=== PATIENT | female | born 1960 | race Caucasian/White ===

== ENCOUNTER 2022-11-23 12:18 | Observation (INO) ==
--- NOTE | 2022-11-23 12:33 | Emergency Department Note ---
Impression & Plan Asthma with exacerbation, Acute dyspnea ED Provider Note NAME: ADAMA DAVID AGE: 62 SEX: F : 1960 ARRIVES VIA: Walk-In INFORMANT: Patient, ED PROVIDER(S): Juma Brown MD CHIEF COMPLAINT: Shortness of breath, MEDICAL DECISION MAKING: Patient presents due to concern for shortness of breath. IV was established blood was obtained patient was ordered IV fluids as well as DuoNeb treatment steroids magnesium. Patient's INR was to be checked based on the patient's prior history and does take INR on a regular basis. Patient typically is between 2 and 3. Patient's blood work shows a normal white count H&H and platelet count with normal kidney function electrolytes. The patient's INR is therapeutic at 2. Troponin is not elevated. Patient's Pro-Erik negative. The patient's bio fire is positive for parainfluenza 3 as well as enterorhino. Patient did have some mild improvement in symptoms but the patient did undergo an ambulatory pulse ox trial. The patient never desatted below 92% but the patient was fairly tachypneic and still feeling unwell. I did discuss additional treatment with the patient patient would prefer to stay in hospital with gentle things and reasonable given the patient has not gotten better with at home treatments. I did speak with the on-call hospitalist service 1 TERI Smith and the patient was admitted by Dr. Milan Prior /Outside records reviewed: None Differential diagnosis: Reactive airway disease, pneumonia, pneumothorax, COPD, CHF, infections, cardiac ischemia, pulmonary embolism, musculoskeletal, gastrointestinal, as well as other pathologies. Diagnostics, as interpreted by me: ECG: Normal sinus rhythm, rate of 77 normal intervals normal axis no ST elevations. No significant change for comparison September 16, 2018 Cardiac monitoring: An order was placed for continuous cardiac monitoring. The monitor shows a rate of 79 with sinus rhythm. Patient was placed on pulse oximetry Medical decision rules: none Imaging studies: See below I informally reviewed the patient's chest x-ray which showed no obvious pneumonia. HPI: Patient presents due to concern for worsening shortness of breath and was sent over after calling the on-call. The patient was recently seen after 2 days of symptoms on Thursday or Thursday and was started on prednisone and doxycycline. The patient states that she has been using the nebulizer treatments at home every 4 hours but without significant improvement in symptoms. The patient is having cough occasionally productive sputum. No recent falls or trauma. The patient does have a known prior history of clots and is on Coumadin. Patient also has a history of MARICARMEN. Patient [place] any leg swelling or calf pain. No recent surgeries procedures or hospitalizations. The patient states she is compliant with her medications. She has a known history of asthma but no history of COPD. The patient denies any smoking history. Patient did call the on-call and given her lack of improvement symptoms was referred here for further evaluation and treatment. PAST MEDICAL HISTORY: See Below PAST SURGICAL HISTORY: See Below SOCIAL HISTORY: See Below HOME MEDICATIONS: See Below ALLERGIES: See Below VITALS: See Below PHYSICAL EXAMINATION: GENERAL: Mildly ill but nontoxic in appearance EYE EXAM: Normal conjunctiva. PERRL, no anisocoria and EOM's grossly intact w/o pain. NECK: Supple, no nuchal rigidity, no adenopathy, non-tender. No signs of meningismus. FROM of the neck with good chin to chest and neck extension. No stridor. LUNGS: Coarse sounds throughout with associated inspiratory expiry wheezes. Normal chest wall mechanics. HEART: NSR, no MRG. ABDOMEN: Abdomen soft, non-tender, no masses, no rebound or guarding. BACK: No CVA TTP. SKIN: No rashes and no bruising. UPPER EXTREMITIES: Upper extremities are grossly normal. LOWER EXTREMITIES: Grossly normal, no edema. Negative Homans' sign bilaterally NEURO EXAM: A&O x3, cranial nerves II-XII grossly intact, normal speech, moves all 4 extremities. Past Med/Surg History Medical History (Updated 11/25/22 @ 14:11 by Juma Brown MD) Allergic rhinitis Asthma, severe persistent GERD (gastroesophageal reflux disease) HTN (hypertension) Pulmonary embolism Surgical History H/O gastric bypass History of pyloroplasty Family History Other Family history non-contributory Social History Smoking Status: Never smoker Hx Alcohol Use: Yes Hx Substance Use: No Preferred Language: Sami Communication Ability: Effective Decorating Instructor Required: No Beliefs That Will Affect Care: None marital status: Current Living Situation: Spouse current occupational status: employed Other Information That Helps Us Care for You: No Feels Safe at Home: Yes Safety Concerns: Feels Safe At This Time Assistive Devices: None Allergies Allergies Allergy/AdvReac Type Severity Reaction Status Date / Time Cephalosporins Allergy Severe ANAPHYLAXIS Verified 11/23/22 17:36 Quinolones Allergy Unknown UNKN Verified 11/23/22 17:36 Sulfa (Sulfonamide Allergy Unknown UNKN Verified 11/23/22 17:36 Antibiotics) Home Meds Home Medications Medication Instructions Recorded Confirmed albuterol 90 mcg/actuation aerosol 2 puff inhalation Q6 PRN Wheezing 09/10/15 11/23/22 inhaler ##0 albuterol sulfate 2.5 mg/3 mL 2.5 mg inhalation Q4 PRN Wheezing 09/10/15 11/23/22 (0.083 %) solution for nebulization #0 doses loratadine 10 mg tablet (Claritin) 10 mg PO DAILY #0 tabs 09/10/15 11/23/22 lorazepam 0.5 mg tablet 0.5 mg PO DAILY PRN Anxiety #0 tabs 09/10/15 11/23/22 montelukast 10 mg tablet 10 mg PO HS #0 tabs 09/10/15 11/23/22 multivitamin (Daily Multi-Vitamin 1 tab PO DAILY #0 tabs 09/10/15 11/23/22 tablet) omeprazole 20 mg capsule,delayed 20 mg PO DAILY PRN Acid Reflux #0 09/10/15 11/23/22 release caps lactobacillus combination no.4 3 1 cap PO DAILY ##0 09/11/15 11/23/22 billion cell capsule (Probiotic) budesonide-formoterol HFA 160 2 inh inhalation BID 11/23/22 11/23/22 mcg-4.5 mcg/actuation aerosol inhaler (Symbicort) doxycycline hyclate 100 mg capsule 100 mg PO BID 11/23/22 11/23/22 finasteride 5 mg tablet 5 mg PO DAILY 11/23/22 11/23/22 furosemide 40 mg tablet 40 mg PO DAILY 11/23/22 11/23/22 lisinopril 10 mg tablet 10 mg PO DAILY 11/23/22 11/23/22 minoxidil 2.5 mg tablet 2.5 mg PO DAILY 11/23/22 11/23/22 mometasone 50 mcg/actuation nasal 1 spray intranasal BID PRN Allergy 11/23/22 11/23/22 spray Symptoms prednisone 20 mg tablet 40 mg PO QAM 11/23/22 11/23/22 warfarin 2.5 mg tablet 2.5 mg PO 3XWK 11/23/22 11/23/22 warfarin 5 mg tablet 5 mg PO 4XWK 11/23/22 11/23/22 Previous Rx's Medication Instructions Recorded azithromycin 250 mg tablet 500 mg PO QAM 2 days #4 tabs 11/25/22 budesonide 0.5 mg/2 mL suspension 0.5 mg (2 mL) NEB BID #60 mL 11/25/22 for nebulization formoterol fumarate 20 mcg/2 mL 20 mcg (2 mL) NEB BID #60 mL 11/25/22 solution for nebulization (Perforomist) prednisone 10 mg tablet See Taper PO DAILY #20 tabs 11/25/22 Results & Data (ED) Vital Signs Vital Signs - 24 hr 11/23/22 12:24 Temperature 36.9 C Temperature Source Temporal Artery Scan Pulse Rate 85 Respiratory Rate 20 Respiratory Effort / Characteristics Non-Labored Spontaneous Respiratory Depth Normal Blood Pressure 150/87 H Blood Pressure Mean 108 Pulse Oximetry 96 Oxygen Delivery Method Room Air Sepsis Recent Fever Within 48 Hours No Sepsis New/Unexplained Change in Mental Status No Sepsis Action Taken by Nursing No Action Required Home Medications Current Medication List: was personally reviewed by me Laboratory Data Attestation: I reviewed the patient's lab results. 11/25/22 05:46 11/25/22 05:46 Lab Results 11/23/22 11/23/22 11/23/22 Range/Units 12:40 12:40 12:40 WBC 4.78 L (4.8-10.8) K/ul RBC 4.60 (4.20-5.40) M/uL Hgb 13.8 (12.0-16.0) g/dl Hct 39.3 (37.0-47.0) % MCV 85.4 (80.0-100.0) fL MCH 30.0 (25.0-34.0) pg MCHC 35.1 (32.0-36.0) g/dL RDW Std Deviation 39.4 (36.4-46.3) fL RDW Coeff of Jefferson 12.7 (11.5-14.5) % Plt Count 228 (130-400) K/uL MPV 9.6 (9.4-12.4) fL Immature Gran % (Auto) 0.6 % Neut % (Auto) 80.0 % Lymph % (Auto) 15.9 % [place] % (Auto) 3.1 % Eos % (Auto) 0.2 % Baso % (Auto) 0.2 % Neut # (Auto) 3.82 (1.40-6.50) K/uL Lymph # (Auto) 0.76 L (1.2-3.4) K/uL [place] # (Auto) 0.15 (0.11-0.59) K/uL Eos # (Auto) 0.01 (0-0.50) K/uL Baso # (Auto) 0.01 (0-0.2) K/uL Immature Gran # (Auto) 0.03 (0.01-0.20) K/uL PT 21.3 H (9.0-12.0) Seconds INR 2.0 H (0.9-1.1) Sodium 134 L (136-145) mmol/L Potassium 4.3 (3.5-5.1) mmol/L Chloride 102 (98-107) mmol/L Carbon Dioxide 25 (21-32) mmol/L Anion Gap 7 (3-11) BUN 8 (6-23) mg/dl Creatinine 0.66 (0.6-1.2) mg/dl Est Cr Clr Drug Dosing 103.1 ml/min Est GFR ( Amer) 109.7 ml/min Est GFR (Non-Af Amer) 94.7 ml/min BUN/Creatinine Ratio 12.1 (10-20) Glucose 130 H (70-99(Fasting)) mg/dl Calcium 9.5 (8.6-10.3) mg/dl Magnesium 1.9 (1.7-2.4) mg/dl Total Bilirubin 0.4 (0.2-1.0) mg/dl AST 22 (13-39) U/L ALT 29 (7-52) U/L Alkaline Phosphatase 56 (34-104) U/L Troponin I High Sens 3.3 (0-14) pg/ml Total Protein 7.4 (6.0-8.3) gm/dl Albumin 4.5 (3.4-5.0) gm/dl Globulin 2.9 (2.5-4.0) gm/dl Albumin/Globulin Ratio 1.6 (0.9-2) Procalcitonin (0-0.5) ng/ml Adenovirus (PCR) (NotDetected) B. pertussis DNA (PCR) (NotDetected) B.parapertussis DNA PCR (NotDetected) C. pneumoniae DNA (PCR) (NotDetected) Coronavirus OC43 (PCR) (NotDetected) Coronavirus HKU1 (PCR) (NotDetected) Coronavirus 229E (PCR) (NotDetected) SARS-CoV-2 (PCR) (NotDetected) Coronavirus NL63 (PCR) (NotDetected) Human Metapneumovir PCR (NotDetected) Influenza Type A (PCR) (NotDetected) Influenza Type B (PCR) (NotDetected) M. pneumoniae (PCR) (NotDetected) Parainfluenza 1 (PCR) (NotDetected) Parainfluenza 2 (PCR) (NotDetected) Parainfluenza 3 (PCR) (NotDetected) Parainfluenza 4 (PCR) (NotDetected) RSV (PCR) (NotDetected) Entero/Rhino (PCR) (NotDetected) 11/23/22 11/23/22 Range/Units 12:40 13:09 WBC (4.8-10.8) K/ul RBC (4.20-5.40) M/uL Hgb (12.0-16.0) g/dl Hct (37.0-47.0) % MCV (80.0-100.0) fL MCH (25.0-34.0) pg MCHC (32.0-36.0) g/dL RDW Std Deviation (36.4-46.3) fL RDW Coeff of Jefferson (11.5-14.5) % Plt Count (130-400) K/uL MPV (9.4-12.4) fL Immature Gran % (Auto) % Neut % (Auto) % Lymph % (Auto) % [place] % (Auto) % Eos % (Auto) % Baso % (Auto) % Neut # (Auto) (1.40-6.50) K/uL Lymph # (Auto) (1.2-3.4) K/uL [place] # (Auto) (0.11-0.59) K/uL Eos # (Auto) (0-0.50) K/uL Baso # (Auto) (0-0.2) K/uL Immature Gran # (Auto) (0.01-0.20) K/uL PT (9.0-12.0) Seconds INR (0.9-1.1) Sodium (136-145) mmol/L Potassium (3.5-5.1) mmol/L Chloride (98-107) mmol/L Carbon Dioxide (21-32) mmol/L Anion Gap (3-11) BUN (6-23) mg/dl Creatinine (0.6-1.2) mg/dl Est Cr Clr Drug Dosing ml/min Est GFR ( Amer) ml/min Est GFR (Non-Af Amer) ml/min BUN/Creatinine Ratio (10-20) Glucose (70-99(Fasting)) mg/dl Calcium (8.6-10.3) mg/dl Magnesium (1.7-2.4) mg/dl Total Bilirubin (0.2-1.0) mg/dl AST (13-39) U/L ALT (7-52) U/L Alkaline Phosphatase (34-104) U/L Troponin I High Sens (0-14) pg/ml Total Protein (6.0-8.3) gm/dl Albumin (3.4-5.0) gm/dl Globulin (2.5-4.0) gm/dl Albumin/Globulin Ratio (0.9-2) Procalcitonin < 0.05 (0-0.5) ng/ml Adenovirus (PCR) Not Detected (NotDetected) B. pertussis DNA (PCR) Not Detected (NotDetected) B.parapertussis DNA PCR Not Detected (NotDetected) C. pneumoniae DNA (PCR) Not Detected (NotDetected) Coronavirus OC43 (PCR) Not Detected (NotDetected) Coronavirus HKU1 (PCR) Not Detected (NotDetected) Coronavirus 229E (PCR) Not Detected (NotDetected) SARS-CoV-2 (PCR) Not Detected (NotDetected) Coronavirus NL63 (PCR) Not Detected (NotDetected) Human Metapneumovir PCR Not Detected (NotDetected) Influenza Type A (PCR) Not Detected (NotDetected) Influenza Type B (PCR) Not Detected (NotDetected) M. pneumoniae (PCR) Not Detected (NotDetected) Parainfluenza 1 (PCR) Not Detected (NotDetected) Parainfluenza 2 (PCR) Not Detected (NotDetected) Parainfluenza 3 (PCR) DETECTED A* (NotDetected) Parainfluenza 4 (PCR) Not Detected (NotDetected) RSV (PCR) Not Detected (NotDetected) Entero/Rhino (PCR) DETECTED A* (NotDetected) Administered Medications Albuterol (Albut/Ipratrop 3mg/0.5mg Neb 3 Ml Vial) 3 ml NEB Q4R RYANNE; Protocol Stop: 12/23/22 18:59 Last Admin: 11/25/22 11:17 Dose: Not Given Documented By: Admin: 11/25/22 07:27 Dose: 3 ml Documented By: Admin: 11/25/22 02:47 Dose: 3 ml Documented By: Admin: 11/24/22 22:34 Dose: 3 ml Documented By: Admin: 11/24/22 19:27 Dose: 3 ml Documented By: Admin: 11/24/22 15:44 Dose: 3 ml Documented By: Admin: 11/24/22 11:36 Dose: 3 ml Documented By: Admin: 11/24/22 07:21 Dose: 3 ml Documented By: Admin: 11/24/22 02:14 Dose: Not Given Documented By: Admin: 11/23/22 22:06 Dose: 3 ml Documented By: Admin: 11/23/22 19:49 Dose: 3 ml Documented By: TRISTON Azithromycin (Azithromycin 250 Mg Tab) 500 [facility] [place] Stop: 12/02/22 09:59 Last Admin: 11/25/22 10:21 Dose: 500 mg Documented By: GEORGIA Budesonide (Budesonide 0.5 Mg/2 Ml Vial (Pulmicort)) 0.5 mg NEB DAILY RYANNE Stop: 12/25/22 09:44 Last Admin: 11/25/22 11:16 Dose: 0.5 mg Documented By: HARRY Finasteride (Finasteride 5 Mg Tab) 5 mg PO DAILY RYANNE Stop: 12/24/22 08:59 Last Admin: 11/25/22 08:26 Dose: 5 mg Documented By: Admin: 11/24/22 08:25 Dose: 5 mg Documented By: MADI Formoterol Fumarate (Formoterol 20 Mcg/2 Ml Vial) 20 mcg NEB DAILY RYANNE Stop: 12/25/22 09:44 Last Admin: 11/25/22 11:16 Dose: 20 mcg Documented By: HARRY Furosemide (Furosemide 40 Mg Tab) 40 mg PO DAILY RYANNE Stop: 12/24/22 08:59 Last Admin: 11/25/22 08:26 Dose: 40 mg Documented By: Admin: 11/24/22 08:25 Dose: 40 mg Documented By: MADI Guaifenesin (Guaifenesin 600 Mg Tabcr) 1,200 mg PO BID RYANNE Stop: 12/23/22 20:59 Last Admin: 11/25/22 08:26 Dose: 1,200 mg Documented By: Admin: 11/24/22 20:13 Dose: 1,200 mg Documented By: Admin: 11/24/22 08:24 Dose: 1,200 mg Documented By: Admin: 11/23/22 20:30 Dose: 1,200 mg Documented By: KINJAL Lisinopril (Lisinopril 10 Mg Tab) 10 mg PO HS RYANNE Stop: 12/23/22 20:59 Last Admin: 11/24/22 20:13 Dose: 10 mg Documented By: Admin: 11/23/22 20:30 Dose: 10 mg Documented By: KINJAL Loratadine (Loratadine 10 Mg Tab) 10 mg PO DAILY RYANNE Stop: 12/24/22 08:59 Last Admin: 11/25/22 08:26 Dose: 10 mg Documented By: Admin: 11/24/22 08:25 Dose: 10 mg Documented By: MADI Lorazepam (Lorazepam 0.5 Mg Tab) 0.5 mg PO DAILY PRN PRN Reason: Anxiety Stop: 12/23/22 18:17 Last Admin: 11/24/22 20:16 Dose: 0.5 mg Documented By: Admin: 11/23/22 21:19 Dose: 0.5 mg Documented By: KINJAL Minoxidil (Minoxidil 2.5 Mg Tab) 2.5 mg PO DAILY [facility] Stop: 12/24/22 08:59 Last Admin: 11/25/22 10:12 Dose: 2.5 mg Documented By: Admin: 11/24/22 08:25 Dose: 2.5 mg Documented By: MADI Montelukast Sodium (Montelukast Sodium 10 Mg Tablet) 10 mg PO HS [facility] Stop: 12/23/22 20:59 Last Admin: 11/24/22 20:13 Dose: 10 mg Documented By: Admin: 11/23/22 20:30 Dose: 10 mg Documented By: KINJAL Prednisone (Prednisone 20 Mg Tab) 40 mg PO DAILY [facility] Stop: 12/24/22 08:59 Last Admin: 11/25/22 08:26 Dose: 40 mg Documented By: Admin: 11/24/22 08:25 Dose: 40 mg Documented By: MADI Warfarin Sodium (Warfarin Sod 2.5 Mg Tab) 2.5 mg PO [email or web address] [facility] Stop: 12/24/22 15:59 Last Admin: 11/24/22 15:27 Dose: 2.5 mg Documented By: MADI Warfarin Sodium (Warfarin Sod 5 Mg Tab) 5 mg PO [email or web address] [facility] Stop: 12/23/22 18:44 Last Admin: 11/23/22 20:30 Dose: 5 mg Documented By: KINJAL Discontinued Medications Albuterol (Albut/Ipratrop 3mg/0.5mg Neb 3 Ml Vial) 12 ml INH ONE STA Stop: 11/23/22 12:50 Last Admin: 11/23/22 13:21 Dose: 12 ml Documented By: CHHAYA Albuterol (Albut/Ipratrop 3mg/0.5mg Neb 3 Ml Vial) 12 ml NEB ONE ONE; Protocol Stop: 11/23/22 15:13 Last Admin: 11/23/22 15:33 Dose: 12 ml Documented By: [id number] Sodium Chloride (Nss 1000ml) 1,000 mls @ 999 mls/hr IV .Q1H1M RYANNE Stop: 11/23/22 14:00 Last Infusion: 11/23/22 14:08 Dose: 0 mls/hr Documented By: Admin: 11/23/22 13:04 Dose: 999 mls/hr Documented By: CHESTER Magnesium Sulfate/Dextrose (Magnesium Sulfate / D5w) 1 gm in 100 mls @ 100 mls /hr IV Q1H RYANNE Stop: 11/23/22 14:59 Last Infusion: 11/23/22 15:13 Dose: 0 mls/hr Documented By: Admin: 11/23/22 14:07 Dose: 100 mls/hr Documented By: Infusion: 11/23/22 14:03 Dose: 100 mls/hr Documented By: Admin: 11/23/22 13:03 Dose: 100 mls/hr Documented By: CHESTER Sodium Chloride (Nss 1000ml) 1,000 mls @ 999 mls/hr IV .Q1H1M ONE Stop: 11/23/22 16:12 Last Infusion: 11/23/22 18:31 Dose: 0 mls/hr Documented By: Admin: 11/23/22 15:17 Dose: 999 mls/hr Documented By: THOMAS Ioversol (Optiray 320 500ml) 115 ml IV ONCE ONE Stop: 11/24/22 14:08 Last Admin: 11/24/22 14:08 Dose: 115 ml Documented By: FIDEL Methylprednisolone (Methylprednisolone 125 Mg/2 Ml Vial) 125 mg IV NOW STA Stop: 11/23/22 12:50 Last Admin: 11/23/22 13:03 Dose: 125 mg Documented By: CHESTER Imaging Data Radiologist's Impression: Chest X-Ray 11/23/22 12:49 XR chest 1V portable CLINICAL HISTORY: Dyspnea TECHNIQUE: Single frontal radiograph of the chest was obtained. Comparison: Comparison is made to chest radiograph 09/26/2018 FINDINGS: No lines and tubes are seen. Calcified aortic knob is seen. The lungs are clear. No evidence of pleural effusion or pneumothorax. IMPRESSION: No acute abnormalities and in particular no radiographic evidence of pneumonia. ACT 112: Negative or not required by law. Electronically signed by: Lan Paredes M.D. 11/23/2022 1:01 PM Discharge Plan Visit Data Chief Complaint: Shortness of Breath/Dyspnea Stated Complaint: SHORTNESS OF BREATH ED Provider: Juma Brown Discharge Problem: Asthma with exacerbation, Acute dyspnea Patient Disposition: Admitted As Inpatient Discharge Instructions Interventions: ED Discharge Assessment Last Done: 11/23/22 18:10
[2022-11-23] MEDS ORDERED: methylPREDNISolone 125 MG/2 ML VIAL IV STA (12:49)
[2022-11-23] MEDS ORDERED: ALBUT/IPRATROP 3MG/0.5MG NEB 3 ML VIAL INH STA (12:49)
[2022-11-23] MEDS ORDERED: SODIUM CHLORIDE 0.9% 1000ML 1,000 ML IV SCH (13:00)
[2022-11-23] MEDS: MAGNESIUM SULFATE / D5W 1 GM/100 ML BAG IV SCH ×2 (13:03→14:07)
--- NOTE | 2022-11-23 13:03 | XRay Report ---
XR chest 1V portable CLINICAL HISTORY: Dyspnea TECHNIQUE: Single frontal radiograph of the chest was obtained. Comparison: Comparison is made to chest radiograph 09/26/2018 FINDINGS: No lines and tubes are seen. Calcified aortic knob is seen. The lungs are clear. No evidence of pleur al effusion or pneumothorax. IMPRESSION: No acute abnormalities and in particular no radiographic evidence of pneumonia. ACT 112: Negative or not required by law. Electronically signed by: Lan Paredes M.D. 11/23/2022 1:01 PM
[2022-11-23 13:06] LABS: Basophils # (auto) 0.01 K/uL (0-0.2); Basophils % (auto) 0.2 %; Eosinophils # (auto) 0.01 K/uL (0-0.50); Eosinophils % (auto) 0.2 %; Hematocrit (blood only) 39.3 % (37.0-47.0); Hemoglobin 13.8 g/dl (12.0-16.0); Immature Granulocytes # (auto) 0.03 K/uL (0.01-0.20); Immature Granulocytes % (auto) 0.6 %; Lymphocytes # (auto) 0.76 K/uL (1.2-3.4); Lymphocytes % (auto) 15.9 %; Mean Corpuscular Hgb Conc 35.1 g/dL (32.0-36.0); Mean Corpuscular Volume 85.4 fL (80.0-100.0); Mean Platelet Volume 9.6 fL (9.4-12.4); Monocytes # (auto) 0.15 K/uL (0.11-0.59); Monocytes % (auto) 3.1 %; Neutrophils # (auto) 3.82 K/uL (1.40-6.50); Platelet Count 228 K/uL (130-400); RDW Coefficient of Variation 12.7 % (11.5-14.5); RDW Standard Deviation 39.4 fL (36.4-46.3); White Blood Count 4.78 K/ul (4.8-10.8)
[2022-11-23 13:11] LABS: Albumin Globulin Ratio 1.6 (0.9-2); Albumin Level 4.5 gm/dl (3.4-5.0); BUN Creatinine Ratio 12.1 (10-20); Bilirubin,Total 0.4 mg/dl (0.2-1.0); Calcium 9.5 mg/dl (8.6-10.3); Creatinine Clr Calc Pharmacy 103.1 ml/min; Est GFR (African American) 109.7 ml/min; Est GFR (Non-African American) 94.7 ml/min; Globulin 2.9 gm/dl (2.5-4.0); Magnesium 1.9 mg/dl (1.7-2.4); Potassium 4.3 mmol/L (3.5-5.1); Total Protein 7.4 gm/dl (6.0-8.3)
[2022-11-23 13:17] LABS: Troponin I High Sensitivity 3.3 pg/ml (0-14)
[2022-11-23 13:28] LABS: Prothrombin Time 21.3 Seconds (9.0-12.0)
[2022-11-23 14:10] LABS: Adenovirus PCR Not Detected (NotDetected); Bordetella parapertussis PCR Not Detected (NotDetected); Bordetella pertussis PCR Not Detected (NotDetected); Chlamydia pneumoniae PCR Not Detected (NotDetected); Coronavirus 229E PCR Not Detected (NotDetected); Coronavirus CoV-2 (COVID19)PCR Not Detected (NotDetected); Coronavirus HKU1 PCR Not Detected (NotDetected); Coronavirus NL63 PCR Not Detected (NotDetected); Coronavirus OC43PCR Not Detected (NotDetected); Human Metapneumovirus PCR Not Detected (NotDetected); Influenza A PCR Not Detected (NotDetected); Influenza B PCR Not Detected (NotDetected); Mycoplasma pneumoniae PCR Not Detected (NotDetected); Parainfluenza Virus 1 PCR Not Detected (NotDetected); Parainfluenza Virus 2 PCR Not Detected (NotDetected); Parainfluenza Virus 4 PCR Not Detected (NotDetected); Respiratory Syncytial VirusPCR Not Detected (NotDetected)
[2022-11-23 14:26] LABS: Rhinovirus/Enterovirus PCR DETECTED (NotDetected)
[2022-11-23 14:27] LABS: Parainfluenza Virus 3 PCR DETECTED (NotDetected)
[2022-11-23] MEDS ORDERED: SODIUM CHLORIDE 0.9% 1000ML 1,000 ML IV ONE (15:12)
[2022-11-23] MEDS ORDERED: ALBUT/IPRATROP 3MG/0.5MG NEB 3 ML VIAL NEB ONE (15:12)
[2022-11-23] MEDS ORDERED: ACETAMINOPHEN 325 MG TAB PO PRN (15:57)
[2022-11-23] MEDS ORDERED: POLYETHYLENE (MIRALAX) 17 GM PACK PO PRN (15:57)
[2022-11-23] MEDS ORDERED: ALUMINUM/MAGNESIUM SUSP 30 ML UDC PO PRN (15:57)
--- NOTE | 2022-11-23 17:20 | History & Physical Report ---
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 SOB/Dyspnea/Rhinovirus/Enterovirus/Parainfluenza viral Illness/Asthma Exacerbation Pt notes she is dyspneic No increased oxygen requirement, no noted episodes of hypoxia at this time Respiratory panel positive for rhinovirus/enterovirus and parainfluenza virus Chest xray with no acute changes, CTA PE protocol ordered given this pt's Hx of PE One dose of IV Solumedrol 125mg in the ED with a duoneb treatment, she failed ambulatory trial there becoming tachypneic. Duoneb treatments q4h scheduled, PO prednisone 40mg daily. Continue inhalers She follows with Allergy medicine outpatient- they noted at her last outpt visit in [facility], that if she continues with frequent exacerbations will consider Spiriva or a biologic. Chronic conditions (per [facility] chart review): Moderate persistent asthma/Allergic rhinitis- follows with Allergy Medicine as above. Continue home inhalers, Singulair, Claritin. Hold prn Nasacort. Hx of PE-continue home warfarin. She takes 2.5mg MWF and 5mg on the other days. Follows with the anticoagulation clinic, goal INR between 2-3. INR on admission 2.0. AM lab pending. 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 Follows with Dermatology. CODE STATUS: Full code Diet: Regular/HH DVT prophylaxis: on home warfarin Dispo: Med/Surg, Obs status History of Present Illness Chief Complaint: SOB/Dyspnea Primary Care Provider: Tova Torres MD Pt is a 62yoF with PMHx of Hx of PE (currently anticoagulated with warfarin), Asthma/Seasonal allergies (following with Allergy Medicine), MARICARMEN on cpap, HTN, GERD, HLD, Anxiety, Insomnia, Edema who presents with SOB/Dyspnea. States that she started with a fever about a week ago that progressed to trouble breathing. She and her were at a but denied sick contacts there. Saw her pcp on the , was prescribed doxycycline and PO prednisone. States she typically needs a prednisone "shot" but did not get that this time. The medications she was prescribed did not help her breathing and so she came in to be evaluated further. Notes a hx of severe asthma. Denies chest pain but does note chest tightness. Allergies Allergy/AdvReac Type Severity Reaction Status Date / Time Cephalosporins Allergy Severe ANAPHYLAXIS Verified 11/23/22 17:36 Quinolones Allergy Unknown UNKN Verified 11/23/22 17:36 Sulfa (Sulfonamide Allergy Unknown UNKN Verified 11/23/22 17:36 Antibiotics) Home Medications Medication Instructions Recorded Confirmed Type albuterol 90 mcg/actuation aerosol 2 puff inhalation Q6 PRN Wheezing 09/10/15 11/23/22 History inhaler ##0 albuterol sulfate 2.5 mg/3 mL 2.5 mg inhalation Q4 PRN Wheezing 09/10/15 11/23/22 History (0.083 %) solution for nebulization #0 doses loratadine 10 mg tablet (Claritin) 10 mg PO DAILY #0 tabs 09/10/15 11/23/22 History lorazepam 0.5 mg tablet 0.5 mg PO DAILY PRN Anxiety #0 tabs 09/10/15 11/23/22 History montelukast 10 mg tablet 10 mg PO HS #0 tabs 09/10/15 11/23/22 History multivitamin (Daily Multi-Vitamin 1 tab PO DAILY #0 tabs 09/10/15 11/23/22 History tablet) omeprazole 20 mg capsule,delayed 20 mg PO DAILY PRN Acid Reflux #0 09/10/15 11/23/22 History release caps lactobacillus combination no.4 3 1 cap PO DAILY ##0 09/11/15 11/23/22 History billion cell capsule (Probiotic) budesonide-formoterol HFA 160 2 inh inhalation BID 11/23/22 11/23/22 History mcg-4.5 mcg/actuation aerosol inhaler (Symbicort) doxycycline hyclate 100 mg capsule 100 mg PO BID 11/23/22 11/23/22 History finasteride 5 mg tablet 5 mg PO DAILY 11/23/22 11/23/22 History furosemide 40 mg tablet 40 mg PO DAILY 11/23/22 11/23/22 History lisinopril 10 mg tablet 10 mg PO DAILY 11/23/22 11/23/22 History minoxidil 2.5 mg tablet 2.5 mg PO DAILY 11/23/22 11/23/22 History mometasone 50 mcg/actuation nasal 1 spray intranasal BID PRN Allergy 11/23/22 11/23/22 History spray Symptoms prednisone 20 mg tablet 40 mg PO QAM 11/23/22 11/23/22 History warfarin 2.5 mg tablet 2.5 mg PO 3XWK 11/23/22 11/23/22 History warfarin 5 mg tablet 5 mg PO 4XWK 11/23/22 11/23/22 History Past Med/Surg History Medical History (Updated 11/23/22 @ 18:19 by Anju Milan MD) Allergic rhinitis Asthma, severe persistent GERD (gastroesophageal reflux disease) HTN (hypertension) Pulmonary embolism Surgical History H/O gastric bypass History of pyloroplasty Family History Other Family history non-contributory Social History Smoking Status: Never smoker Preferred Language: Hungarian marital status: Current Living Situation: Spouse current occupational status: employed Feels Safe at Home: Yes Review of Systems Review of Systems: All systems reviewed & are unremarkable except as noted in HPI & below Physical Exam Physical Exam: General: Alert, oriented. No acute distress Skin: No noted rashes or bruises Psych: Appropriate mood and affect Neuro: No gross deficits HEENT: NC/AT Chest: Nontender to palpation. CV: RRR, Normal s1, s2. No murmurs appreciated Resp: Breath sounds rhoncorous bilaterally, no increased effort of breathing. No crackles/rhonchi/rales. Abdomen: Soft, nontender, nondistended. No guarding. No organomegaly appreciated. Extremities: No edema in lower extremities bilaterally. Results & Data Results & Data Vital Signs (Past 12 Hours) Vital Signs Temp Pulse Pulse Resp BP BP Pulse Ox 11/23/22 15:33 97 H 19 94 11/23/22 14:13 90 18 154/75 H 98 11/23/22 13:22 73 16 95 11/23/22 13:08 96 11/23/22 13:08 95 11/23/22 13:08 73 18 138/76 95 11/23/22 12:24 36.9 C 85 20 150/87 H 96 O2 Del Method FiO2 11/23/22 15:33 Room Air 21 11/23/22 14:13 Nebulizer 11/23/22 13:22 Room Air 11/23/22 13:08 Room Air 11/23/22 13:08 Room Air 11/23/22 13:08 Room Air 11/23/22 12:24 Room Air Code Status & VTE Plan VTE Prophylaxis Plan VTE Prophylaxis will be ordered: Yes (9) Asthma exacerbation Asthma persistence: unspecified Asthma severity: mild Qualified Code(s): J45.901 - Unspecified asthma with (acute) exacerbation
[2022-11-23] MEDS ORDERED: PANTOprazole 40 MG TAB PO PRN (18:26)
[2022-11-23] MEDS ORDERED: ALBUTEROL HFA 8 GM INHALER INH PRN (18:27)
[2022-11-23] MEDS: ALBUT/IPRATROP 3MG/0.5MG NEB 3 ML VIAL NEB SCH ×2 (19:49→22:06)
[2022-11-23] MEDS: guaiFENesin 600 MG TABCR PO SCH (20:30)
[2022-11-23] MEDS: WARFARIN SOD 5 MG TAB PO SCH (20:30)
[2022-11-23] MEDS: MONTELUKAST SODIUM 10 MG TABLET PO SCH (20:30)
[2022-11-23] MEDS: lisinopril 10 MG TAB PO SCH (20:30)
[2022-11-23] MEDS ORDERED: Nursing to Pharmacy Communication SCH (20:30)
[2022-11-23] MEDS: LORazepam 0.5 MG TAB PO PRN (21:19)
[2022-11-24] MEDS: ALBUT/IPRATROP 3MG/0.5MG NEB 3 ML VIAL NEB SCH ×6 (02:14→22:34)
[2022-11-24 08:12] LABS: Basophils # (auto) 0.01 K/uL (0-0.2); Basophils % (auto) 0.1 %; Hematocrit (blood only) 37.5 % (37.0-47.0); Hemoglobin 12.9 g/dl (12.0-16.0); Immature Granulocytes # (auto) 0.04 K/uL (0.01-0.20); Immature Granulocytes % (auto) 0.4 %; Lymphocytes # (auto) 1.76 K/uL (1.2-3.4); Lymphocytes % (auto) 16.9 %; Mean Corpuscular Hemoglobin 29.9 pg (25.0-34.0); Mean Corpuscular Hgb Conc 34.4 g/dL (32.0-36.0); Mean Corpuscular Volume 86.8 fL (80.0-100.0); Mean Platelet Volume 9.5 fL (9.4-12.4); Monocytes # (auto) 0.78 K/uL (0.11-0.59); Monocytes % (auto) 7.5 %; Neutrophils % (auto) 75.1 %; Platelet Count 220 K/uL (130-400); RDW Coefficient of Variation 12.7 % (11.5-14.5); RDW Standard Deviation 40.8 fL (36.4-46.3); Red Blood Count 4.32 M/uL (4.20-5.40); White Blood Count 10.39 K/ul (4.8-10.8)
[2022-11-24 08:22] LABS: Prothrombin Time 21.4 Seconds (9.0-12.0)
[2022-11-24] MEDS: guaiFENesin 600 MG TABCR PO SCH ×2 (08:24→20:13)
[2022-11-24] MEDS: FUROSEMIDE 40 MG TAB PO SCH (08:25)
[2022-11-24] MEDS: predniSONE 20 MG TAB PO SCH (08:25)
[2022-11-24] MEDS: FINASTERIDE 5 MG TAB PO SCH (08:25)
[2022-11-24] MEDS: minoxidiL 2.5 MG TAB PO SCH (08:25)
[2022-11-24] MEDS: LORATADINE 10 MG TAB PO SCH (08:25)
[2022-11-24 08:46] LABS: BUN Creatinine Ratio 17.2 (10-20); Calcium 8.9 mg/dl (8.6-10.3); Creatinine Clr Calc Pharmacy 106.2 ml/min; Est GFR (African American) 110.8 ml/min; Est GFR (Non-African American) 95.6 ml/min; Potassium 3.9 mmol/L (3.5-5.1)
[2022-11-24] MEDS ORDERED: lisinopril 10 MG TAB PO SCH (09:00)
[2022-11-24] MEDS ORDERED: FLUTICASONE/VILANTEROL 200/25MCG 14 PUFFS/INHALER INH SCH (09:00)
--- NOTE | 2022-11-24 11:30 | Electrocardiogram Report ---
Test Reason : Blood Pressure : / mmHG Vent. Rate : 077 BPM Atrial Rate : 077 BPM P-R Int : 130 ms QRS Dur : 102 ms QT Int : 390 ms P-R-T Axes : 050 058 063 degrees QTc Int : 441 ms Poor data quality, interpretation may be adversely affected Normal sinus rhythm Septal infarct (cited on or before 23-NOV-2022) Abnormal ECG When compared with ECG of 26-SEP-2018 08:42, No significant change was found Confirmed by Luis Peraza ([id number]) on 11/24/2022 11:29:53 AM Referred By: Confirmed By:Luis Peraza
[2022-11-24] MEDS ORDERED: OPTIRAY 320 500ml IV ONE (14:07)
--- NOTE | 2022-11-24 14:46 | CT Scan Report ---
CHEST CTA for PULMONARY ARTERIES CT DOSE: 794.73 mGy.cm HISTORY: Shortness of breath. TECHNIQUE: Multiaxial CT images of the chest were performed following the intravenous administration of contrast to evaluate the pulmonary arteries. Maximal intensity projection images were also obtaine d. A dose lowering technique was utilized adhering to the principles of ALARA. COMPARISON STUDY: Chest CTA 09/14/2015. FINDINGS: Normal caliber thoracic aorta with no evidence for a dissection. No filling defects within the pulmonary arteries to suggest a pulmonary embolus. Limited views of the upper abdomen demonstrate a normal liver, spleen, and adrenal glands. Normal esophagus. The thyroid gland enhances normally. N o pleural or pericardial effusions. The heart is normal in size. No mediastinal or hilar lymphadenopa thy. No acute fractures identified. No pneumothorax. The central airways are patent. There are a few partially opacified bilateral lower lobe distal bronchi. There are bibasilar lower lobe linear densit ies which favor subsegmental atelectasis. A low-grade pneumonitis could also have a similar appearanc e. The upper lung zones remain clear. IMPRESSION: 1. No evidence for a pulmonary embolus. 2. Partial opacification of the distal bilateral lower lobe bronchi with a few lower lobe linear dens ities. These favor subsegmental atelectasis. A low-grade pneumonitis could also a similar appearance in the appropriate clinical setting. ACT 112: Negative or not required by law. Electronically signed by: Aly Rivas M.D. 11/24/2022 2:45 PM
--- NOTE | 2022-11-24 15:34 | Hospitalist Progress Note ---
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 SOB/Dyspnea/Rhinovirus/Enterovirus/Parainfluenza viral Illness/ Asthma Exacerbation Patient presents with increasing shortness of breath No increased oxygen requirement, no noted episodes of hypoxia at this time Respiratory panel positive for rhinovirus/enterovirus and parainfluenza virus Chest xray reviewed personally; with no acute changes, CTA PE reviewed; no PE. Duoneb treatments q4h scheduled, PO prednisone 40mg daily. Continue inhalers Chronic conditions (per [facility] chart review): Moderate persistent asthma/Allergic rhinitis- Continue home inhalers, Singulair, Claritin. Hold prn Nasacort. Hx of PE-continue home warfarin. She takes 2.5mg MWF and 5mg on the other days. Follows with the anticoagulation clinic, goal INR between 2-3. 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 Follows with Dermatology. CODE STATUS: Full code Diet: Regular/HH DVT prophylaxis: on home warfarin Dispo: Med/Surg, Obs status. Continues to be hospitalized due to asthma exacerbation requiring inpatient observation for possible decompensation. Please note the above document was generated using voice recognition software. It may contain grammatical, syntax or spelling errors. Any formal questions or concerns about the content, text or information contained within the body of this dictation should be directly addressed to the provider for clarification Admission and Anticipated Discharge Date Admission Date: November 23, 2022 Subjective Patient seen and examined at bedside. She reports that her shortness of breath has improved compared to admission. Review of Systems Review of Systems: All systems reviewed & are unremarkable except as noted in Subjective Physical Exam Physical Exam: Constitutional: WD/WN, vitals as above, NAD, sitting up in bed, pleasant, conversing easily Respiratory: Bilateral wheeze present with prolonged expiration. Cardiovascular: RRR, no murmur, no edema Vessels: no JVD or carotid bruit Chest: normal inspection of chest Abdomen: normal bowel sounds, soft, nontender, no hepatosplenomegaly Musculoskeletal: no cyanosis or clubbing, extremities motor strength 5/5 Skin: no rashes, warm and dry normal turgor Neurologic: PERRL, EOMI, accommodation nl, no face palsy, no dysarthria CN's II- XI intact bilaterally and moves all extremities Psychiatric: A+Ox3, euthymic affect Lymphatic: no cervical or axillary lymphadenopathy : deferred Results & Data Results & Data Vital Signs (Past 12 Hours) Vital Signs Temp Pulse Resp BP Pulse Ox O2 Del Method 11/24/22 11:36 85 16 97 Room Air 11/24/22 07:45 Room Air 11/24/22 07:53 36.8 C 87 16 135/69 96 Room Air 11/24/22 07:22 86 18 97 Room Air Laboratory Results Laboratory Results WBC 10.39 K/ul (4.8-10.8) 11/24/22 07:40 RBC 4.32 M/uL (4.20-5.40) 11/24/22 07:40 Hgb 12.9 g/dl (12.0-16.0) 11/24/22 07:40 Hct 37.5 % (37.0-47.0) 11/24/22 07:40 MCV 86.8 fL (80.0-100.0) 11/24/22 07:40 MCH 29.9 pg (25.0-34.0) 11/24/22 07:40 MCHC 34.4 g/dL (32.0-36.0) 11/24/22 07:40 RDW Std Deviation 40.8 fL (36.4-46.3) 11/24/22 07:40 RDW Coeff of [place] 12.7 % (11.5-14.5) 11/24/22 07:40 Plt Count 220 K/uL (130-400) 11/24/22 07:40 MPV 9.5 fL (9.4-12.4) 11/24/22 07:40 Immature Gran % (Auto) 0.4 % 11/24/22 07:40 Neut % (Auto) 75.1 % 11/24/22 07:40 Lymph % (Auto) 16.9 % 11/24/22 07:40 Bertie % (Auto) 7.5 % 11/24/22 07:40 Eos % (Auto) 0.0 % 11/24/22 07:40 Baso % (Auto) 0.1 % 11/24/22 07:40 Neut # (Auto) 7.80 K/uL (1.40-6.50) H 11/24/22 07:40 Lymph # (Auto) 1.76 K/uL (1.2-3.4) 11/24/22 07:40 Bertie # (Auto) 0.78 K/uL (0.11-0.59) H 11/24/22 07:40 Eos # (Auto) 0.00 K/uL (0-0.50) 11/24/22 07:40 Baso # (Auto) 0.01 K/uL (0-0.2) 11/24/22 07:40 Immature Gran # (Auto) 0.04 K/uL (0.01-0.20) 11/24/22 07:40 PT 21.4 Seconds (9.0-12.0) H 11/24/22 07:40 INR 2.0 (0.9-1.1) H 11/24/22 07:40 Sodium 136 mmol/L (136-145) 11/24/22 07:40 Potassium 3.9 mmol/L (3.5-5.1) 11/24/22 07:40 Chloride 104 mmol/L (98-107) 11/24/22 07:40 Carbon Dioxide 26 mmol/L (21-32) 11/24/22 07:40 Anion Gap 6 (3-11) 11/24/22 07:40 BUN 11 mg/dl (6-23) 11/24/22 07:40 Creatinine 0.64 mg/dl (0.6-1.2) 11/24/22 07:40 Est Cr Clr Drug Dosing 106.2 ml/min 11/24/22 07:40 Est GFR ( Amer) 110.8 ml/min 11/24/22 07:40 Est GFR (Non-Af Amer) 95.6 ml/min 11/24/22 07:40 BUN/Creatinine Ratio 17.2 (10-20) 11/24/22 07:40 Glucose 101 mg/dl (70-99(Fasting)) H 11/24/22 07:40 Calcium 8.9 mg/dl (8.6-10.3) 11/24/22 07:40 Magnesium 1.9 mg/dl (1.7-2.4) 11/23/22 12:40 Total Bilirubin 0.4 mg/dl (0.2-1.0) 11/23/22 12:40 AST 22 U/L (13-39) 11/23/22 12:40 ALT 29 U/L (7-52) 11/23/22 12:40 Alkaline Phosphatase 56 U/L (34-104) 11/23/22 12:40 Troponin I High Sens 3.3 pg/ml (0-14) 11/23/22 12:40 Total Protein 7.4 gm/dl (6.0-8.3) 11/23/22 12:40 Albumin 4.5 gm/dl (3.4-5.0) 11/23/22 12:40 Globulin 2.9 gm/dl (2.5-4.0) 11/23/22 12:40 Albumin/Globulin Ratio 1.6 (0.9-2) 11/23/22 12:40 Procalcitonin < 0.05 ng/ml (0-0.5) 11/23/22 12:40 Adenovirus (PCR) Not Detected (NotDetected) 11/23/22 13:09 B. pertussis DNA (PCR) Not Detected (NotDetected) 11/23/22 13:09 B.parapertussis DNA PCR Not Detected (NotDetected) 11/23/22 13:09 C. pneumoniae DNA (PCR) Not Detected (NotDetected) 11/23/22 13:09 Coronavirus OC43 (PCR) Not Detected (NotDetected) 11/23/22 13:09 Coronavirus HKU1 (PCR) Not Detected (NotDetected) 11/23/22 13:09 Coronavirus 229E (PCR) Not Detected (NotDetected) 11/23/22 13:09 SARS-CoV-2 (PCR) Not Detected (NotDetected) 11/23/22 13:09 Coronavirus NL63 (PCR) Not Detected (NotDetected) 11/23/22 13:09 Human Metapneumovir PCR Not Detected (NotDetected) 11/23/22 13:09 Influenza Type A (PCR) Not Detected (NotDetected) 11/23/22 13:09 Influenza Type B (PCR) Not Detected (NotDetected) 11/23/22 13:09 M. pneumoniae (PCR) Not Detected (NotDetected) 11/23/22 13:09 Parainfluenza 1 (PCR) Not Detected (NotDetected) 11/23/22 13:09 Parainfluenza 2 (PCR) Not Detected (NotDetected) 11/23/22 13:09 Parainfluenza 3 (PCR) DETECTED (NotDetected) A* 11/23/22 13:09 Parainfluenza 4 (PCR) Not Detected (NotDetected) 11/23/22 13:09 RSV (PCR) Not Detected (NotDetected) 11/23/22 13:09 Entero/Rhino (PCR) DETECTED (NotDetected) A* 11/23/22 13:09 Impressions Chest X-Ray 11/23/22 12:49 XR chest 1V portable CLINICAL HISTORY: Dyspnea TECHNIQUE: Single frontal radiograph of the chest was obtained. Comparison: Comparison is made to chest radiograph 09/26/2018 FINDINGS: No lines and tubes are seen. Calcified aortic knob is seen. The lungs are clear. No evidence of pleural effusion or pneumothorax. IMPRESSION: No acute abnormalities and in particular no radiographic evidence of pneumonia. ACT 112: Negative or not required by law. Electronically signed by: Lan Paredes M.D. 11/23/2022 1:01 PM Chest CTA 11/24/22 14:00 CHEST CTA for PULMONARY ARTERIES CT DOSE: 794.73 mGy.cm HISTORY: Shortness of breath. TECHNIQUE: Multiaxial CT images of the chest were performed following the intravenous administration of contrast to evaluate the pulmonary arteries. Maximal intensity projection images were also obtained. A dose lowering tech nique was utilized adhering to the principles of ALARA. COMPARISON STUDY: Chest CTA 09/14/2015. FINDINGS: Normal caliber thoracic aorta with no evidence for a dissection. No filling defects within the pulmonary arteries to suggest a pulmonary embolus. Limited views of the upper abdomen demonstrate a normal liver, spleen, and adrenal glands. Normal esophagus. The thyroid gland enhances normally. No pleural or pericardial effusions. The heart is normal in size. No mediastinal or hilar lymphadenopathy. No acute fractures identified. No pneumothorax. The central airways are patent. There are a few partially opacified bilateral lower lobe distal bronchi. There are bibasilar lower lobe linear densities which favor subsegmental atelectasis. A low-grade pneumonitis could also have a similar brent earance. The upper lung zones remain clear. IMPRESSION: 1. No evidence for a pulmonary embolus. 2. Partial opacification of the distal bilateral lower lobe bronchi with a few lower lobe linear densities. These favor subsegmental atelectasis. A low-grade pneumonitis could also a similar appearance in the appropriate clinical setting. ACT 112: Negative or not required by law. Electronically signed by: Aly Rivas M.D. 11/24/2022 2:45 PM (9) Asthma exacerbation Asthma persistence: unspecified Asthma severity: mild Qualified Code(s): J45.901 - Unspecified asthma with (acute) exacerbation
[2022-11-24] MEDS ORDERED: WARFARIN SOD 2.5 MG TAB PO SCH (16:00)
[2022-11-24] MEDS: MONTELUKAST SODIUM 10 MG TABLET PO SCH (20:13)
[2022-11-24] MEDS: lisinopril 10 MG TAB PO SCH (20:13)
[2022-11-24] MEDS: LORazepam 0.5 MG TAB PO PRN (20:16)
[2022-11-25] MEDS: ALBUT/IPRATROP 3MG/0.5MG NEB 3 ML VIAL NEB SCH ×4 (02:47→15:35)
[2022-11-25 06:17] LABS: Basophils # (auto) 0.03 K/uL (0-0.2); Basophils % (auto) 0.3 %; Eosinophils # (auto) 0.07 K/uL (0-0.50); Eosinophils % (auto) 0.7 %; Hemoglobin 13.1 g/dl (12.0-16.0); Immature Granulocytes # (auto) 0.06 K/uL (0.01-0.20); Immature Granulocytes % (auto) 0.6 %; Lymphocytes # (auto) 2.96 K/uL (1.2-3.4); Lymphocytes % (auto) 30.5 %; Mean Corpuscular Hemoglobin 30.4 pg (25.0-34.0); Mean Corpuscular Hgb Conc 34.5 g/dL (32.0-36.0); Mean Corpuscular Volume 88.2 fL (80.0-100.0); Mean Platelet Volume 9.4 fL (9.4-12.4); Monocytes # (auto) 0.64 K/uL (0.11-0.59); Monocytes % (auto) 6.6 %; Neutrophils # (auto) 5.96 K/uL (1.40-6.50); Neutrophils % (auto) 61.3 %; Platelet Count 219 K/uL (130-400); RDW Coefficient of Variation 12.9 % (11.5-14.5); RDW Standard Deviation 41.6 fL (36.4-46.3); Red Blood Count 4.31 M/uL (4.20-5.40); White Blood Count 9.72 K/ul (4.8-10.8)
[2022-11-25 06:47] LABS: Creatinine Clr Calc Pharmacy 113.2 ml/min; Est GFR (African American) 113.2 ml/min; Est GFR (Non-African American) 97.7 ml/min; Potassium 3.7 mmol/L (3.5-5.1)
[2022-11-25] MEDS: LORATADINE 10 MG TAB PO SCH (08:26)
[2022-11-25] MEDS: guaiFENesin 600 MG TABCR PO SCH (08:26)
[2022-11-25] MEDS: predniSONE 20 MG TAB PO SCH (08:26)
[2022-11-25] MEDS: FINASTERIDE 5 MG TAB PO SCH (08:26)
[2022-11-25] MEDS: FUROSEMIDE 40 MG TAB PO SCH (08:26)
[2022-11-25] MEDS ORDERED: BUDESONIDE 0.5 MG/2 ML VIAL (PULMICORT) NEB SCH (09:45)
[2022-11-25] MEDS ORDERED: FORMOTEROL 20 MCG/2 ML VIAL NEB SCH ×3 (09:45→21:00)
[2022-11-25] MEDS ORDERED: AZITHROMYCIN 250 MG TAB PO SCH (10:00)
[2022-11-25] MEDS: minoxidiL 2.5 MG TAB PO SCH (10:12)
--- NOTE | 2022-11-25 13:41 | Discharge Summary ---
Date of Service November 25, 2022 Admission HPI Per Admitting Provider Pt is a 62yoF with PMHx of Hx of PE (currently anticoagulated with warfarin), Asthma/Seasonal allergies (following with Allergy Medicine), MARICARMEN on cpap, HTN, GERD, HLD, Anxiety, Insomnia, Edema who presents with SOB/Dyspnea. States that she started with a fever about a week ago that progressed to trouble breathing. She and her were at a but denied sick contacts there. Saw her pcp on the , was prescribed doxycycline and PO prednisone. States she typically needs a prednisone "shot" but did not get that this time. The medications she was prescribed did not help her breathing and so she came in to be evaluated further. Notes a hx of severe asthma. Denies chest pain but does note chest tightness. Admission Exam Per Admitting Provider General: Alert, oriented. No acute distress Skin: No noted rashes or bruises Psych: Appropriate mood and affect Neuro: No gross deficits HEENT: NC/AT Chest: Nontender to palpation. CV: RRR, Normal s1, s2. No murmurs appreciated Resp: Breath sounds rhoncorous bilaterally, no increased effort of breathing. No crackles/rhonchi/rales. Abdomen: Soft, nontender, nondistended. No guarding. No organomegaly appreciated. Extremities: No edema in lower extremities bilaterally. Principal Diagnosis SOB/Dyspnea/Rhinovirus/Enterovirus/Parainfluenza viral Illness Asthma Exacerbation Discharge Exam Constitutional: WD/WN, vitals as above, NAD, sitting up in bed, pleasant, conversing easily Respiratory: Occasional wheeze. Cardiovascular: RRR, no murmur, no edema Vessels: no JVD or carotid bruit Chest: normal inspection of chest Abdomen: normal bowel sounds, soft, nontender, no hepatosplenomegaly Musculoskeletal: no cyanosis or clubbing, extremities motor strength 5/5 Skin: no rashes, warm and dry normal turgor Neurologic: PERRL, EOMI, accommodation nl, no face palsy, no dysarthria CN's II- XI intact bilaterally and moves all extremities Psychiatric: A+Ox3, euthymic affect Lymphatic: no cervical or axillary lymphadenopathy : deferred Discharge Data Allergies Allergy/AdvReac Type Severity Reaction Status Date / Time Cephalosporins Allergy Severe ANAPHYLAXIS Verified 11/23/22 17:36 Quinolones Allergy Unknown UNKN Verified 11/23/22 17:36 Sulfa (Sulfonamide Allergy Unknown UNKN Verified 11/23/22 17:36 Antibiotics) Consultations 11/23/22 15:12 ED Decision to Admit Stat Ordered Studies 11/24/22 14:00 CT angio chest PE protocol Routine Hospital Course (1) Asthma, severe persistent: (2) HTN (hypertension): (3) GERD (gastroesophageal reflux disease): (4) Allergic rhinitis: (5) SOB (shortness of breath): (6) Rhinovirus infection: (7) Enterovirus infection: (8) Parainfluenza: (9) Asthma exacerbation: (10) History of pulmonary embolism: (11) MARICARMEN (obstructive sleep apnea): (12) HLD (hyperlipidemia): (13) Anxiety: (14) Edema: (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 SOB/Dyspnea/Rhinovirus/Enterovirus/Parainfluenza viral Illness/ Asthma Exacerbation Patient presents with increasing shortness of breath No increased oxygen requirement, no noted episodes of hypoxia at this time Respiratory panel positive for rhinovirus/enterovirus and parainfluenza virus Chest xray reviewed personally; with no acute changes, CTA PE done; no PE seen. During the hospitalization, patient was treated with [id number]-gyern DuoNebs, steroids, cough syrup and azithromycin. She continued to saturate well in room air. Patient was discharged home with instructions to complete course of azithromycin. She will also prescribed tapering dose of prednisone, nebulized budesonide and formoterol. Patient to follow-up with PCP. All other medication was resumed as before Please note the above document was generated using voice recognition software. It may contain grammatical, syntax or spelling errors. Any formal questions or concerns about the content, text or information contained within the body of this dictation should be directly addressed to the provider for clarification Total Time Total Time Spent Total Time Spent (In Minutes): 45 Total Time Includes: Examination of the Patient, Discharge Planning, Medication Reconciliation, Communication With Other Providers and Other Discharge Plan Discharge Items Patient Disposition: Home - Self-Care Reason For Visit: SOB Discharge Diagnosis: Asthma exacerbation Parainfluenza 3 infection Rhinovirus infection Activity: Resume your previous activity Non-emergency contact: Primary Care Provider Call non-emergency contact if: you have any medication questions and your symptoms worsen Follow-up/Referrals: Tova Torres MD [Primary Care Provider] - (Date & Time 12/02/2022 9:00 AM Provider Tova Torres MD Department Family [facility] ) Diet: Regular Addtl Attending Provider Instructions: You were admitted to the hospital with asthma exacerbation. You are found to have parainfluenza and rhinovirus infection. Please follow the following instructions: 1) Use nebulizer machine with albuterol every 8 hours for next 3 days. 2) You are also prescribed budesonide and formoterol nebulizer solution. Please use them twice a day for next 3. You can go back to using your regular inhaler after that. If the insurance is not able to cover the nebulizer solution; you can use your regular inhaler. 3) Azithromycin 500 mg once a day for 2 days An appointment will be set up with your primary care doctor. Pending Studies at Discharge: No Stand-Alone Forms: My [facility] [employer], Smoking Cessation Medications and DC Order Prescriptions: New azithromycin 250 mg Tablet 500 mg PO QAM 2 Days Qty: 4 0RF formoterol fumarate [Perforomist] 20 mcg/2 mL Solution For Nebulization 20 mcg NEB BID Qty: 60 0RF prednisone 10 mg tablet See Taper PO DAILY Qty: 20 0RF Taper: Taper, Blank 40 mg DAILY for 2 Days 30 mg DAILY for 2 Days 20 mg DAILY for 2 Days 10 mg DAILY for 2 Days budesonide 0.5 mg/2 mL Suspension For Nebulization 0.5 mg NEB BID Qty: 60 0RF Continued multivitamin [Daily Multi-Vitamin] Tablet 1 tab PO DAILY Qty: 0 albuterol sulfate [Proventil] 2.5 mg /3 mL (0.083 %) Solution For Nebulization 2.5 mg Inhalation Q4 PRN (Reason: Wheezing) Qty: 0 lorazepam 0.5 mg Tablet 0.5 mg PO DAILY PRN (Reason: Anxiety) Qty: 0 omeprazole 20 mg Capsule,Delayed Release(Dr/Ec) 20 mg PO DAILY PRN (Reason: Acid Reflux) Qty: 0 montelukast 10 mg Tablet 10 mg PO HS Qty: 0 albuterol 90 mcg/actuation Aerosol 2 puff Inhalation Q6 PRN (Reason: Wheezing) Qty: 0 loratadine [Claritin] 10 mg Tablet 10 mg PO DAILY Qty: 0 Probiotic 3 billion cell Capsule 1 cap PO DAILY Qty: 0 furosemide 40 mg tablet 40 mg PO DAILY warfarin 2.5 mg Tablet 2.5 mg PO [id number] Rx Instructions: Thursday, Thursday and Thursday minoxidil 2.5 mg tablet 2.5 mg PO DAILY lisinopril 10 mg tablet 10 mg PO DAILY warfarin 5 mg Tablet 5 mg PO [id number] Rx Instructions: Thursday, , Thursday and Thursday mometasone 50 mcg/actuation spray,non-aerosol 1 spray INTRANASAL BID PRN (Reason: Allergy Symptoms) finasteride 5 mg tablet 5 mg PO DAILY budesonide-formoterol [Symbicort] 160-4.5 mcg/actuation HFA aerosol inhaler 2 inh INHALATION BID Discontinued doxycycline hyclate 100 mg capsule 100 mg PO BID Rx Instructions: 10 day supply starting 11/22/22 prednisone 20 mg tablet 40 mg PO QAM Rx Instructions: 5 day supply started on 11/22/2022 Discharge Orders: Discharge Order (Routine); Ordered 11/25/22 Ordered By: Senthil Nelson Admission Data Admit Date/Time: 11/23/22 16:01 Attending Provider: Senthil Nelson Admit Provider: Anju Milan Primary Care Provider: Tova Torres Other Providers: Anju Milan ; Kaylyn Naranjo
[2022-11-25] MEDS ORDERED: Nursing to Pharmacy Communication SCH (18:00)
[2022-11-25] MEDS: WARFARIN SOD 5 MG TAB PO SCH (18:25)
== END 2022-11-25 19:10 | disposition home or self-care (01) ==
LOC: ED 12:18 → 3E 12:18 → SUATTDRO 16:01 → 3E 18:10